=== PATIENT | female | born 1965 | race American Indian/Alaskan Native ===

== ENCOUNTER 2017-02-20 09:14 | Outpatient (CLI) | payer OTHER ==
--- NOTE | 2017-02-20 11:07 | Fluoroscopy Report ---
Contrast upper GI: History: Functional dystocia. Findings: Transit of barium through the esophagus in upright position and prone oblique position appears normal without reflux. There is reflux noted in supine position extending to mid esophagus. No evidence of hiatal hernia. Partial gastrectomy with gastrojejunostomy. No evidence of obstruction or ulceration at the site of anastomosis. Small diverticulum distal esophagus proximal to the GE junction. Impression: Findings as detailed above .
== END 2017-02-20 09:15 | disposition home or self-care (01) ==
LOC: FLUORO 09:14
PROVIDERS: ATTEND Surgery
DX: K22.5 Diverticulum of esophagus, acquired (principal); K30 Functional dyspepsia
CPT/HCPCS: 74247